=== PATIENT | male | born 1965 | race Caucasian/White ===

== ENCOUNTER 2017-03-09 09:17 | Day surgery (SDC) | payer OTHER ==
[~2017-03-09] VITALS: Ht 185.4 cm; Wt 135.0 kg
[~2017-03-09 09:17] MED LIST: CETI10CA PO; GABA-502 PO; IBUP200C PO; LOSA25TA21 PO; Sodium Chloride LOK Flush 10 mL Syringe IV PRN; fentaNYL-PF 50 mCg/mL 2 mL Inj IVPUSH PRN
[2017-03-09 09:35] VITALS: BP 160/102; PULSE 77; RESP 16; O2SAT 99
[2017-03-09] MEDS ORDERED: ATEN25TA PO (09:38)
[2017-03-09] MEDS: 0.9% Sodium Chloride 1,000 ML IV SCH ×2 (10:23→11:06)
[2017-03-09 11:13] VITALS: BP 148/84; PULSE 68; RESP 14; O2SAT 98
[2017-03-09 11:41] VITALS: BP 148/83; PULSE 67; RESP 16; O2SAT 99
--- NOTE | 2017-03-09 21:10 | ENDO ---
[address] [address] ENDOSCOPY PROCEDURE PATIENT: NKECHI TUCKER : 1965 MR#: [id number] ADMIT: 03/09/2017 JOB ID: [id number] PRIMARY PROVIDER: Paulino Mayers MD. PROCEDURE: Esophagogastroduodenoscopy with biopsy and a colonoscopy with cold forceps polypectomy. INDICATIONS: A 51-year-old male with reflux symptoms going on for the last year or so. He reports taking omeprazole about four times per week. He additionally reports for colon cancer screening. EQUIPMENT: GIF-H180 and a PCF-H180AL. SEDATION: 6 mg Versed, 150 mcg fentanyl. COMPLICATIONS: None identified. BOWEL PREPARATION: Fair, adequate exam. PROCEDURE INFORMATION: After the risks and benefits were explained, written and verbal informed consent was obtained, the patient was brought into the endoscopy suite and placed into the left lateral decubitus position. Sedation was achieved using the above-stated medications with the addition of oxygen via nasal cannula. The scope was introduced into the mouth and advanced to the second portion of the duodenum. The scope was slowly withdrawn to carefully examine the mucosa for any defects or lesions. Retroflexed views were accomplished in the stomach. The stomach was decompressed. The scope removed from the patient who tolerated the procedure well. The patient was then turned around. Digital rectal examination accomplished. No significant pathology appreciated. Scope introduced into the rectum and advanced to the cecum as identified by the appendiceal orifice and ileocecal valve. The scope was slowly withdrawn to carefully examine the mucosa for any defects or lesions. Retroflexed views were avoided in the rectum. Multiple direct views were made through the dentate line for exclusion of pathology. The colon was decompressed, the scope removed from the patient who tolerated the procedure well. FINDINGS: 1. Duodenum. No significant pathology from the bulb through to the second portion. 2. Stomach: No outlet obstruction. No ulcers. No mass lesions. Diffuse moderate gastropathy was seen throughout. Diminutive polyp in the mid body also noted. This was removed with cold forceps for histopathology and exclusion of H. Pylori. Otherwise, retroflexed views of the LES were unremarkable. 3. Esophagus: The squamocolumnar junction correlated with the top of the gastric folds. The GE junction was at about 40 cm from the incisors. The patient had evidence of LA grade A erosive and even ulcerative esophagitis. A subtle sliding hiatal hernia noted. The remainder of the esophagus appeared unremarkable. I did not see anything at the level of the GE junction suggestive of Espinoza's. 4. Colon: Minimal diverticulosis was seen in the left colon. There was a diminutive rectal polyp removed with cold forceps. Otherwise, no significant pathology appreciated throughout. ENDOSCOPIC DIAGNOSES: 1. Gastropathy. 2. Diminutive gastric polyp. 3. Subtle hiatal hernia. 4. LA grade A erosive esophagitis. 5. Rectal polyp. 6. Diverticulosis. RECOMMENDATIONS: 1. Await histopathology. 2. The patient is encouraged to engage in lifestyle modifications that will facilitate weight loss and reduce reflux symptoms. In the meantime, he would be prudent to increase his PPI coverage up to daily in light of the esophagitis seen today. 3. Repeat colonoscopy in five years if this polyp is an adenoma, 10 years if hyperplastic. Sooner p.r.n.
--- NOTE | 2017-03-10 14:59 | PATH ---
SURGICAL PATHOLOGY Attending Physician:Rae Cruz CASE STATUS: Signed Out PATIENT NAME: NKECHI TUCKER PID: [id number] : 1965 DATE COLLECTED:03/09/2017 21:26 SPECIMEN: 1: Stomach, Polyp, Biopsy 2: Rectum, Biopsy CLINICAL HISTORY: 1). GASTRIC POLYP 2). RECTAL POLYP FINAL DIAGNOSIS: 1. Gastric Polyp: Hyperplastic polyp. Negative for intestinal metaplasia. Negative for dysplasia and malignancy. 2. Rectal Polyp: Tubular adenoma. ICD10: K31.7 D12.8 GROSS DESCRIPTION: The specimen is received in two formalin filled containers labeled with the patient's name. 1). The specimen is sublabeled "gastric" and consists of a 0.5 x 0.3 x 0.2 CM portion of tissue which is entirely submitted in cassette 1A. 2). The specimen is sublabeled "rectal polyp" and consists of a 0.3 x 0.3 x 0.3 CM portion of tissue which is entirely submitted in cassette 2A. 03/09/2017 DAC MICRO DESCRIPTION: Please see diagnosis. ICD-9 CODES: CPT CODES: 1: 31137, 93614 2: 05285 PROCEDURE/ADDENDA: Immunohistochemistry SPI Interpretation {Not Entered} Results-Comments This addendum is issued to report the results of immunohistochemical staining of the gastric polyp tissue for Helicobacter pylori. The patient tissue is stained with monoclonal antibody to Helicobacter pylori (SP48). Positive and negative controls stain appropriately. Result: The patient tissue shows no staining. Interpretation: The gastric polyp tissue is negative for Helicobacter pylori by immunohistochemical stains. This test was developed and its performance characteristics determined by [facility]. It has not been cleared or approved by the [place]. Food and Drug Administration. The FDA has determined that such clearance or approval is not necessary. This test is used for clinical purposes. It should not be regarded as investigational or for research. Electronically Signed Out Betzaida Rios MD Electronically Signed Out Betzaida Rios MD [facility] [place] [address] Technical component performed at [facility], [facility] [address], [address]
== END 2017-03-09 23:59 | disposition home or self-care (01) ==
LOC: END 09:17
PROVIDERS: ATTEND Internal Medicine Gastroenterology
DX: Z12.11 Encounter for screening for malignant neoplasm of colon (principal); D12.8 Benign neoplasm of rectum; K57.30 Diverticulosis of large intestine without perforation or abscess without bleeding; K31.7 Polyp of stomach and duodenum; K21.0 Gastro-esophageal reflux disease with esophagitis; K44.9 Diaphragmatic hernia without obstruction or gangrene; K31.9 Disease of stomach and duodenum, unspecified; I10 Essential (primary) hypertension; J30.9 Allergic rhinitis, unspecified; M48.00 Spinal stenosis, site unspecified
CPT/HCPCS: 43239; 45380; 99153; G0500; J7030